=== PATIENT | male | born 1955 | race Caucasian/White ===

== ENCOUNTER 2019-09-05 10:36 | Outpatient (CLI) | payer OTHER ==
--- NOTE | 2019-09-05 11:10 | RAD ---
EXAM: Chest 2 views: HISTORY: Shortness of breath COMPARISON: 05/05/2013 FINDINGS: There is a normal-sized cardiomediastinal silhouette. The previously seen pneumonia has resolved and scarring is seen in the inferior aspect of the right upper lobe. There is no evidence of consolidation, mass, or pleural effusion. The bones are unremarkable. IMPRESSION: No evidence of acute cardiopulmonary disease
== END 2019-09-05 10:37 | disposition home or self-care (01) ==
LOC: NAV RAD 10:36
PROVIDERS: ATTEND Nurse Practitioner Family
DX: R06.02 Shortness of breath (principal); Z87.891 Personal history of nicotine dependence
CPT/HCPCS: 71046

== ENCOUNTER 2020-09-06 10:11 | Outpatient (CLI) | payer OTHER ==
--- NOTE | 2020-09-06 10:29 | RAD ---
Exam:3 views left knee HISTORY: Pain. COMPARISON: None FINDINGS: Bone demineralization. No significant joint fluid. Moderate narrowing of the medial joint s pace. Lateral joint space and patellofemoral compartment do not demonstrate significant loss of joint space height. No fractures or malalignment. Scattered atherosclerotic disease IMPRESSION: 1. Moderate degenerative change involving the medial compartment.
== END 2020-09-06 10:12 | disposition home or self-care (01) ==
LOC: NAV RAD 10:11
PROVIDERS: ATTEND Family Medicine
DX: M25.562 Pain in left knee (principal); M17.12 Unilateral primary osteoarthritis, left knee